=== PATIENT | male | born 1940 | race Caucasian/White ===

== ENCOUNTER 2020-05-14 13:31 | Outpatient (CLI) | payer OTHER, SELFPAY ==
--- NOTE | ~2020-05-14 | CT_ITS ---
EXAMINATION:CT chest wo con DATE: 05/14/2020 14:07 INDICATION: Thoracic aortic aneurysm. TECHNIQUE: Computed tomography (CT) of the chest was performed without intravenous contrast. Automate d exposure control and iterative reconstruction technique were employed. The dose-length product (DLP ) was 409.61 mGy-cm. COMPARISON: None. FINDINGS: There is mild scarring in paraspinal right lower lobe. No pleural effusion. The heart size is normal. There are coronary artery calcifications. There are calcifications of the aortic valve. No pericardial effusion. The aorta measures 3.9 cm at the sinuses of Valsalva, 3.4 cm at the sinotubula r junction, 4.2 cm in the mid ascending aorta, 2.7 cm at the aortic isthmus, and 2.8 cm in the mid de scending thoracic aorta. There are healing fractures of the right sixth-eighth ribs. There is mild th oracic spondylosis. IMPRESSION: 1. Ectasia of ascending aorta measuring 4.2 cm. Reviewed, dictated and finalized at location A. [employer]
== END 2020-05-14 13:32 | disposition home or self-care (01) ==
PROVIDERS: PCP Family Medicine; Visit Provider Internal Medicine Cardiovascular Disease
DX: I71.2 Thoracic aortic aneurysm, without rupture (principal)
CPT/HCPCS: 71250

== ENCOUNTER 2021-09-23 15:58 | Outpatient (CLI) | payer OTHER, SELFPAY ==
--- NOTE | ~2021-09-23 | CT_ITS ---
EXAMINATION:CT diagnostic chest wo con DATE: 09/23/2021 16:32 INDICATION: Thoracic aortic aneurysm without rupture. TECHNIQUE: Computed tomography (CT) of the chest was performed without intravenous contrast. Automate d exposure control and iterative reconstruction technique were employed. The dose-length product (DLP ) was 688.11 mGy-cm. COMPARISON: Chest CT 05/14/2020 FINDINGS: There is minimal atelectasis bilaterally. There is mild scarring in paraspinal right lower lobe. There is a stable 3 mm nodule in right lung lower lobe. There is a stable 4 mm nodule in lingul a. There is a stable 3 mm nodule in lingula. These nodules are likely benign. A calcified left lung n odule is consistent with old granulomatous disease. No pleural effusion. The heart size is normal. Th ere are coronary artery calcifications. There are calcifications of aortic valve. There is ectasia of ascending aorta measuring 4.1 cm. There is mild bilateral gynecomastia. There are bridging endplate osteophytes at multiple levels in the spine, consistent with diffuse idiopathic skeletal hyperostosis (DISH). IMPRESSION: 1. Stable ectasia of ascending aorta measuring 4.1 cm. Reviewed, dictated and finalized at location A.
== END 2021-09-23 15:59 | disposition home or self-care (01) ==
LOC: ANHIMG 16:08
PROVIDERS: PCP Family Medicine; Visit Provider Physician Assistant
DX: I71.2 Thoracic aortic aneurysm, without rupture (principal)
CPT/HCPCS: 71250

== ENCOUNTER 2024-06-08 12:47 | Outpatient (CLI) | payer OTHER, SELFPAY ==
--- NOTE | ~2024-06-08 | CT_ITS ---
CT head without contrast Indication: Altered mental state Technique: Serial scans were obtained through the brain without the administration of contrast. Dose reduction technique was used on this scan by utilizing automated exposure control and iterative recon struction technique. The dose-length product (DLP) was 605.33 mGy-cm. Findings: There is no evidence of intracranial hemorrhage, mass lesion, or acute infarct. The ventri cles and subarachnoid spaces are dilated, consistent with mild to moderate atrophy. Low attenuation regions are seen within the periventricular white matter bilaterally, likely representing changes fro m chronic microvascular ischemic disease. There is no evidence of edema, mass effect or midline shif t. The visualized paranasal sinuses and mastoid air cells are clear. Impression: No intracranial hemorrhage, mass, or acute infarct. Atrophy and chronic white matter changes, as above. Reviewed, dictated and finalized at location M. MANAGER Impression: No intracranial hemorrhage, mass, or acute infarct. Atrophy and chronic white matter changes, as above.
== END 2024-06-08 12:48 | disposition home or self-care (01) ==
PROVIDERS: PCP Family Medicine; Visit Provider Physician Assistant
DX: R40.4 Transient alteration of awareness (principal); R90.82 White matter disease, unspecified
CPT/HCPCS: 70450